=== PATIENT | male | born 1950 | race Caucasian/White ===

== ENCOUNTER 2022-03-12 10:30 | Emergency (ER) | payer OTHER ==
[~2022-03-12 10:30] MED LIST: AMOXICILLIN500 M1 PO; CARAFATE 1 GM TA1 GM PO; OMEPRAZOLE20 M1 PO; PEPCID20 MG PO; VIBRAMYCIN100 MG PO; ZOFRAN ODT 4 MG4 MG SL
[2022-03-12 12:00] LABS: HEMOGLOBIN 13.3 gm/dl (14.0-17.5); RED BLOOD COUNT 4.19 M/UL (4.20-5.50); WHITE BLOOD COUNT 6.9 K/UL (4.5-11.0)
[2022-03-12 12:27] LABS: BUN/CREATININE RATIO 13 (0-10)
[2022-03-12] MEDS ORDERED: NEBULIZER UNIT INH (15:06)
[2022-03-12] MEDS ORDERED: IPRAT-ALBUT 0.5-3 ML INH (15:08)
== END 2022-03-12 15:41 | disposition home or self-care (01) ==
LOC: ER1 10:30
PROVIDERS: Physician Assistant
DX: I95.89 Other hypotension (principal); I11.0 Hypertensive heart disease with heart failure; I50.9 Heart failure, unspecified; J60 Coalworker's pneumoconiosis; Z95.0 Presence of cardiac pacemaker; Z20.822 Contact with and (suspected) exposure to COVID-19
CPT/HCPCS: 70450; 71045; 80053; 82550; 82553; 83880; 84484; 85025; 93005; 99285; U0002